=== PATIENT | female | born 1945 | race Caucasian/White ===

== ENCOUNTER 2020-03-03 08:51 | Day surgery (SDC) | payer MEDICARE ==
[~2020-03-03 08:51] MED LIST: Bupivacaine 0.5% 50 ML MDV ONE; Lidocaine 1% with EPINEPHrine 1:100,000 50 ML MDV ONE
[2020-03-03] MEDS ORDERED: Sodium Chloride 0.9% 1,000 ML IV SCH (09:15)
[2020-03-03] MEDS ORDERED: ceFAZolin 2 GM in Premix Bag 1 BAG IV ONE (09:15)
[2020-03-03] MEDS ORDERED: Midazolam 1 MG/ML 2 ML SDV ONE (09:42)
[2020-03-03] MEDS ORDERED: fentaNYL 100 MCG/2 ML SDV ONE (09:42)
[2020-03-03] MEDS ORDERED: Propofol 200 MG/20 ML SDV ONE (09:43)
[2020-03-03] MEDS ORDERED: Bacitracin Oint 1 GM U/D Packet TOP ONE (10:45)
[2020-03-03 11:59] VITALS: BP 157/82; PULSE 55
--- NOTE | 2020-03-27 13:40 | OR ---
DATE OF PROCEDURE: 03/03/2020 SURGEON: Steven Villar MD PROCEDURES: 1. Removal of foreign body, right 2nd finger using intraoperative fluoroscopy. 2. Digital nerve block, right 2nd finger. COMPLICATION: None. MUSICIAN INSTRUMENTAL: None. ANESTHESIA: MAC/local. PREOPERATIVE DIAGNOSIS: Foreign body, right second finger. POSTOPERATIVE DIAGNOSIS: Foreign body, right second finger. RISKS: Risks, benefits, alternatives, and limitations including, but not limited to infection, bleeding, and injury to vascular and nerve structures within the finger were explained to the patient, who wished to proceed. PROCEDURE IN DETAIL: The patient was placed in a supine position. The area was identified and a longitudinal incision was made, after anesthetizing with lidocaine and digital block. This was carried down, and using intraoperative fluoroscopy, a metallic object was removed. This was consistent with the needle the patient was concerned of. No additional abnormalities were noted on fluoroscopy. This was then sutured with 3-0 Vicryl and 4-0 Prolene. Dressings were applied. Steven Villar MD /[id number]
== END 2020-03-03 12:22 | disposition home or self-care (01) ==
LOC: JP.SDS 08:51
PROVIDERS: ATTEND Surgery
DX: S60.450A Superficial foreign body of right index finger, initial encounter (principal); W45.8XXA Other foreign body or object entering through skin, initial encounter
CPT/HCPCS: 10120; 76000; J0690; J2250; J2704; J3010; J3490; J7030

== ENCOUNTER 2023-08-15 03:33 | Emergency (ER) | payer MEDICARE ==
[2023-08-15 04:11] LABS: BASOPHILS ABSOLUTE AUTO 0.08 K/uL (0.00-0.10); BASOPHILS PERCENT AUTO 0.9 % (0.1-1.3); EOSINOPHILS ABSOLUTE AUTO 0.12 K/uL (0.00-0.40); EOSINOPHILS PERCENT AUTO 1.4 % (0.0-5.4); HEMATOCRIT 30.2 % (34.3-46.0); HEMOGLOBIN 10.5 g/dL (11.2-15.5); IMMATURE GRAN ABSOLUTE AUTO 0.04 K/uL (0.00-0.23); IMMATURE GRAN PERCENT AUTO 0.5 % (0.0-0.7); LYMPHOCYTES ABSOLUTE AUTO 0.91 K/uL (0.8-3.3); LYMPHOCYTES PERCENT AUTO 10.8 % (11.4-47.7); MEAN CORPUSCULAR HEMOGLOBIN 33.3 pg (31.6-35.5); MEAN CORPUSCULAR HGB CONC 34.8 g/dL (31.6-35.5); MEAN CORPUSCULAR VOLUME 95.9 fL (81.4-99.0); MONOCYTES ABSOLUTE AUTO 0.88 K/uL (0.20-0.90); MONOCYTES PERCENT AUTO 10.4 % (3.3-12.6); NEUTROPHILS ABSOLUTE AUTO 6.42 K/uL (1.0-7.6); PLATELET COUNT,PLT 189 K/uL (130-375); RED BLOOD CELL COUNT 3.15 M/uL (3.77-5.24); WHITE BLOOD CELL COUNT,WBC 8.5 K/uL (3.2-11.0)
[2023-08-15] MEDS ORDERED: Labetalol 100 MG/20 ML MDV IV ONE (04:26)
[2023-08-15 04:33] LABS: A/G RATIO 1.1 (1.2-2.2); ALANINE AMINOTRANSFERASE,ALT 18 U/L (12-78); ALBUMIN 3.2 g/dL (3.4-5.0); ALKALINE PHOSPHATASE 164 U/L (46-116); BILIRUBIN TOTAL 1.6 mg/dL (0.2-1.0); BLOOD UREA NITROGEN,BUN 37 mg/dL (7-18); CARBON DIOXIDE,CO2 21 mmol/L (21-32); CHLORIDE,CL 101 mmol/L (100-108); CREATININE 3.2 mg/dL (0.6-1.0); EST CRCL DRUG DOSING (CG) 10.24 mL/min; ESTIMATED GFR 14 mL/min (>60); GLUCOSE RANDOM 112 mg/dL (74-106); POTASSIUM,K 4.2 mmol/L (3.6-5.2); PROTEIN TOTAL,TP 6.2 g/dL (6.4-8.2); SODIUM,NA 136 mmol/L (140-148)
[2023-08-15 04:35] LABS: ANION GAP 18.2 mmol/L (5.0-14.0); ASPARTATE AMNIOTRANSFERASE,AST 76 U/L (15-37)
[2023-08-15] MEDS ORDERED: Metoprolol Tartrate 50 MG Tab PO ONE (05:00)
[2023-08-15 05:23] LABS: INR 3.1
[2023-08-15] MEDS ORDERED: Sodium Chloride 0.9% 1,000 ML IV SCH (05:30)
[2023-08-15] MEDS ORDERED: Labetalol 20 MG/4 ML Syringe IVPUSH ONE (05:31)
[2023-08-15] MEDS: Labetalol 100 MG in Sodium Chloride 0.9% 80 ML IV SCH ×2 (06:39→07:37)
[2023-08-15 06:59] VITALS: BP 146/75; PULSE 68
== END 2023-08-15 07:55 | disposition other institution (70) ==
LOC: JP.ED 03:33
DX: I10 Essential (primary) hypertension (principal); R47.01 Aphasia; N17.9 Acute kidney failure, unspecified; E78.00 Pure hypercholesterolemia, unspecified; E03.9 Hypothyroidism, unspecified; E66.9 Obesity, unspecified; Z79.01 Long term (current) use of anticoagulants; Z79.899 Other long term (current) drug therapy; Z91.048 Other nonmedicinal substance allergy status; Z88.8 Allergy status to other drugs, medicaments and biological substances; Z68.28 Body mass index [BMI] 28.0-28.9, adult
CPT/HCPCS: 36415; 70450; 80053; 84484; 85025; 85610; 93005; 93010; 96361; 96365; 96376; 99285; A9270; J3490; J7030

== ENCOUNTER 2023-09-05 09:53 | Emergency (ER) | payer MEDICARE ==
[2023-09-05] MEDS ORDERED: Sodium Chloride 0.9% 10 ML Syringe FLUSH PRN (10:54)
[2023-09-05 11:01] LABS: BASOPHILS ABSOLUTE AUTO 0.13 K/uL (0.00-0.10); BASOPHILS PERCENT AUTO 1.3 % (0.1-1.3); EOSINOPHILS ABSOLUTE AUTO 0.17 K/uL (0.00-0.40); EOSINOPHILS PERCENT AUTO 1.7 % (0.0-5.4); HEMATOCRIT 30.3 % (34.3-46.0); HEMOGLOBIN 10.6 g/dL (11.2-15.5); IMMATURE GRAN ABSOLUTE AUTO 0.04 K/uL (0.00-0.23); IMMATURE GRAN PERCENT AUTO 0.4 % (0.0-0.7); LYMPHOCYTES PERCENT AUTO 17.9 % (11.4-47.7); MEAN CORPUSCULAR VOLUME 97.1 fL (81.4-99.0); NEUTROPHILS ABSOLUTE AUTO 7.09 K/uL (1.0-7.6); NEUTROPHILS PERCENT AUTO 70.7 % (40.0-78.1); PLATELET COUNT,PLT 271 K/uL (130-375); RED BLOOD CELL COUNT 3.12 M/uL (3.77-5.24)
[2023-09-05 11:22] LABS: CREATININE 0.7 mg/dL (0.6-1.0); EST CRCL DRUG DOSING (CG) 46.81 mL/min; POTASSIUM,K 3.4 mmol/L (3.6-5.2); TROPONIN I HIGH SENSITIVITY 19.4 pg/mL (<=60.3)
[2023-09-05 11:27] LABS: ANION GAP 12.4 mmol/L (5.0-14.0)
[2023-09-05 11:37] VITALS: BP 119/48; PULSE 105
== END 2023-09-05 13:27 | disposition home or self-care (01) ==
LOC: JP.ED 09:53
DX: I48.0 Paroxysmal atrial fibrillation (principal); E78.00 Pure hypercholesterolemia, unspecified; E03.9 Hypothyroidism, unspecified; E66.9 Obesity, unspecified; Z79.82 Long term (current) use of aspirin; Z79.01 Long term (current) use of anticoagulants; Z79.899 Other long term (current) drug therapy; Z91.018 Allergy to other foods; Z88.8 Allergy status to other drugs, medicaments and biological substances; Z91.09 Other allergy status, other than to drugs and biological substances; Z68.28 Body mass index [BMI] 28.0-28.9, adult
CPT/HCPCS: 36415; 80048; 84484; 85025; 93005; 99285; J3490

== ENCOUNTER 2024-03-17 23:28 | Emergency (ER) | payer OTHER, MEDICARE ==
[2024-03-17 23:46] LABS: BICARBONATE,VENOUS 25.8 mmol/L; CARBOXYHEMOGLOBIN 1.5 % (0.0-1.6); METHEMOGLOBIN 0.8 %; O2 SATURATION VENOUS 16.9; OXYHEMOGLOBIN 16.5 %; PCO2 VENOUS 44.7 mm/Hg; TOTAL HEMOGLOBIN 10.7 g/dL (12.0-16.0)
[2024-03-17 23:47] LABS: BASOPHILS ABSOLUTE AUTO 0.16 K/uL (0.00-0.10); BASOPHILS PERCENT AUTO 0.8 % (0.1-1.3); EOSINOPHILS ABSOLUTE AUTO 0.27 K/uL (0.00-0.40); EOSINOPHILS PERCENT AUTO 1.4 % (0.0-5.4); HEMATOCRIT 29.8 % (34.3-46.0); HEMOGLOBIN 10.3 g/dL (11.2-15.5); IMMATURE GRAN PERCENT AUTO 1.5 % (0.0-0.7); LYMPHOCYTES ABSOLUTE AUTO 2.42 K/uL (0.8-3.3); LYMPHOCYTES PERCENT AUTO 12.4 % (11.4-47.7); MEAN CORPUSCULAR HEMOGLOBIN 35.3 pg (31.6-35.5); MEAN CORPUSCULAR HGB CONC 34.6 g/dL (31.6-35.5); MEAN CORPUSCULAR VOLUME 102.1 fL (81.4-99.0); MONOCYTES ABSOLUTE AUTO 1.47 K/uL (0.20-0.90); MONOCYTES PERCENT AUTO 7.6 % (3.3-12.6); NEUTROPHILS ABSOLUTE AUTO 14.82 K/uL (1.0-7.6); NEUTROPHILS PERCENT AUTO 76.3 % (40.0-78.1); PLATELET COUNT,PLT 336 K/uL (130-375); PO2 VENOUS 16.9 mm/Hg; RED BLOOD CELL COUNT 2.92 M/uL (3.77-5.24); WHITE BLOOD CELL COUNT,WBC 19.4 K/uL (3.2-11.0)
[2024-03-17 23:55] LABS: BLOOD UREA NITROGEN,BUN 20 mg/dL (7-18); CALCIUM 9.1 mg/dL (8.5-10.1); CARBON DIOXIDE,CO2 26 mmol/L (21-32); CHLORIDE,CL 101 mmol/L (100-108); CREATININE 0.9 mg/dL (0.6-1.0); ESTIMATED GFR 65 mL/min (>60); GLUCOSE RANDOM 157 mg/dL (74-106); POTASSIUM,K 3.2 mmol/L (3.6-5.2); SODIUM,NA 138 mmol/L (140-148)
[2024-03-17 23:58] LABS: ANION GAP 14.2 mmol/L (5.0-14.0)
[2024-03-18 00:05] LABS: INR 1.7; PROTHROMBIN TIME 17.3 sec (9.2-10.6)
[2024-03-18] MEDS: Ondansetron 4 MG/2 ML SDV IVPUSH ONE (00:19)
[2024-03-18] MEDS: Sodium Chloride 0.9% 1,000 ML IV SCH (00:22)
[2024-03-18] MEDS: Iopamidol 612 MG/ML 100 ML Bottle IV PRN (00:39)
[2024-03-18] MEDS: Sodium Chloride 0.9% 80 ML IV SCH (00:39)
[2024-03-18] MEDS: Lidocaine 1% with EPINEPHrine 1:100,000 50 ML MDV INJECT ONE (01:47)
[2024-03-18] MEDS: Tranexamic Acid 1,000 MG/10 ML Vial IVPUSH ONE (01:52)
[2024-03-18] MEDS: Factor IX Complex Human 500 UNIT VIAL IVPUSH ONE (02:58)
[2024-03-18 04:07] VITALS: BP 133/51; PULSE 73
== END 2024-03-18 03:12 | disposition other institution (70) ==
LOC: JP.ED 23:28
DX: S91.312A Laceration without foreign body, left foot, initial encounter (principal); S30.1XXA Contusion of abdominal wall, initial encounter; D62 Acute posthemorrhagic anemia; E03.9 Hypothyroidism, unspecified; Z91.011 Allergy to milk products; Z91.09 Other allergy status, other than to drugs and biological substances; Z88.8 Allergy status to other drugs, medicaments and biological substances; Z79.890 Hormone replacement therapy; Z79.899 Other long term (current) drug therapy; Z79.82 Long term (current) use of aspirin; Z86.73 Personal history of transient ischemic attack (TIA), and cerebral infarction without residual deficits; Z90.710 Acquired absence of both cervix and uterus; V49.49XA Driver injured in collision with other motor vehicles in traffic accident, initial encounter
CPT/HCPCS: 12002; 36415; 36430; 70450; 71260; 72125; 74177; 76377; 80048; 82803; 85018; 85025; 85610; 86850; 86900; 86901; 86920; 86922; 96361; 96365; 96375; 99285; J2405; J3490; J7030; J7168; P9016; Q9967